=== PATIENT | female | born 1950 | race Caucasian/White ===

== ENCOUNTER 2021-07-24 09:26 | Emergency (ER) | payer MEDICARE, OTHER ==
[2021-07-24 11:23] LABS: CARBON DIOXIDE,CO2 26.6 mmol/L (21.0-32.0); POTASSIUM,K 3.9 mmol/L (3.5-5.1)
[2021-07-24] MEDS ORDERED: cefTRIAXone 1 GM Vial IM ONE (12:28)
[2021-07-24] MEDS ORDERED: Lidocaine 1% PF 2 ML SDV INJECT ONE (12:36)
== END 2021-07-24 13:21 | disposition home or self-care (01) ==
LOC: MW.ED 09:26
DX: L03.116 Cellulitis of left lower limb (principal); E78.00 Pure hypercholesterolemia, unspecified; I10 Essential (primary) hypertension; Z79.899 Other long term (current) drug therapy; Z91.041 Radiographic dye allergy status
CPT/HCPCS: 36415; 73620; 80048; 85025; 93970; 96372; 99284; J0696

== ENCOUNTER 2022-03-02 20:36 | Emergency (ER) | payer MEDICARE, OTHER ==
[2022-03-03] MEDS ORDERED: diphenhydrAMINE 50 MG Cap PO ONE (00:09)
[2022-03-03] MEDS ORDERED: Sulfamethoxazole/Trimethoprim 800-160 MG Tab PO ONE (00:09)
[2022-03-03] MEDS ORDERED: Erythromycin Base 0.5% Ophth Oint 1 GM Tube EYEBOTH STA (00:10)
[2022-03-03] MEDS ORDERED: Amoxicillin/Clavulanate K 875-125 MG Tab PO ONE (00:10)
[2022-03-03] MEDS ORDERED: Tetracaine HCl/PF 0.5% 4 ML Bottle EYEBOTH ONE (00:11)
== END 2022-03-03 00:35 | disposition home or self-care (01) ==
LOC: MW.ED 20:36
DX: H10.33 Unspecified acute conjunctivitis, bilateral (principal); H11.422 Conjunctival edema, left eye; L03.213 Periorbital cellulitis; E78.00 Pure hypercholesterolemia, unspecified; I10 Essential (primary) hypertension; Z91.041 Radiographic dye allergy status; Z79.899 Other long term (current) drug therapy
CPT/HCPCS: 99282; A9270

== ENCOUNTER 2022-03-30 17:31 | Emergency (ER) | payer MEDICARE, OTHER ==
[2022-03-30] MEDS ORDERED: Ketorolac 30 MG/ML SDV IVPUSH ONE (18:43)
[2022-03-30] MEDS ORDERED: LORazepam 2 MG/ML SDV IVPUSH ONE (18:43)
[2022-03-30] MEDS ORDERED: Ondansetron 4 MG/2 ML SDV IVPUSH ONE (18:43)
== END 2022-03-30 20:01 | disposition home or self-care (01) ==
LOC: MW.ED 17:31
DX: G43.909 Migraine, unspecified, not intractable, without status migrainosus (principal); I10 Essential (primary) hypertension; E78.00 Pure hypercholesterolemia, unspecified; Z79.899 Other long term (current) drug therapy
CPT/HCPCS: 70450; 96374; 96375; 99283; J1885; J2060; J2405; 99284

== ENCOUNTER 2025-01-03 18:55 | Emergency (ER) | payer MEDICARE, OTHER ==
[2025-01-03 19:30] LABS: APPEARANCE,URINE CLOUDY; GLUCOSE,URINE NEGATIVE (NEGATIVE); OCCULT BLOOD,URINE LARGE (NEGATIVE)
[2025-01-03 19:32] LABS: SQUAMOUS EPITHELIAL CELLS,UR FEW
[2025-01-03] MEDS ORDERED: Sodium Chloride 0.9% 2.5 ML Syringe FLUSH PRN (19:32)
[2025-01-03] MEDS ORDERED: Sodium Chloride 0.9% 10 ML Syringe FLUSH PRN (19:32)
== END 2025-01-03 19:57 | disposition home or self-care (01) ==
LOC: MW.ED 18:55
DX: N30.01 Acute cystitis with hematuria (principal); I10 Essential (primary) hypertension; E78.00 Pure hypercholesterolemia, unspecified; K21.9 Gastro-esophageal reflux disease without esophagitis; Z91.041 Radiographic dye allergy status; Z79.899 Other long term (current) drug therapy
CPT/HCPCS: 81001; 87086; 87088; 87186; 99283